=== PATIENT | male | born 1990 | race Two or more races ===

== ENCOUNTER 2025-01-12 21:44 | Inpatient (IN) | payer MEDICAID, OTHER ==
[~2025-01-12] VITALS: Ht 175.3 cm; Wt 73.6 kg
[2025-01-12 21:45] VITALS: PULSE 88; RESP 16; O2SAT 99
[2025-01-12] MEDS: NALOXONE HCL 1MG/ML 2ML SYRINGE IV ONE (21:46)
[2025-01-12] MEDS: ETOMIDATE (2MG/ML) 20ML VIAL IV ONE (21:49)
[2025-01-12] MEDS: ROCURONIUM 10MG/ML 10ML VIAL IV ONE (21:49)
--- NOTE | 2025-01-12 21:51 | ED.PDOC ---
History of Present Illness HPI Comments 35 y/o M, with limited known history of depression, is BIBA for c/o ALOC s/p possible overdose. Per EMS report, family called after finding patient in altered stated at home. He is stated to have taken an unknown amount of his prescription Trazodone, earlier, in an attempt to end his life. Last well known time of 1 hour ago prior to arrival. Patient was noted to have had pinpoint pupils and respiratory depression. He was given a total of 4mg of Narcan (2mg via IM and 2mg via IV), with patient vomiting multiple times and becoming responsive, temporarily, prior to undergoing respiratory depression, again. No reported further associated symptoms reported. Further history is limited, due to patient's current condition and absence of family/an/ssn 2 4 operator historians at this time of initial encounter. 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, Other (Narcan; nonrebreather ) Past Medical History PAST MEDICAL HISTORY: Depression Surgical History: Unknown, Unobtainable Family History Family History: Unknown, Unobtainable Social History Smoker: Unknown, Unobtainable Alcohol: Unknown, Unobtainable Drugs: Unknown, Unobtainable Lives In: Home All Other Systems: Reviewed and Negative (Comprehensive systems review obtained and negative except for what is stated in the HPI.) Physical Exam General Appearance: Other (Patient unresponsive, EMS his bagging the patient.) HEENT: Pharynx Normal Neck: Normal Inspection Respiratory: Other (Patient is being bagged) Cardiovascular: Tachycardia Breast Exam: Deferred Gastrointestinal: Non Tender Genitalia: Other (Erect penis) Pelvic: Deferred Rectal: Deferred Extremities: Normal inspection Neurologic: Other (Patient unresponsive, does not react to pain) Cerebellar Function: Unable to Test Reflexes: NOT DONE Skin: Pallor Lymphatic: NOT DONE Was a procedure done? Was a procedure done?: Yes Sedation Sedation?: Yes Informed consent obtained: Yes Sedation start time: 21:45 Sedation end time: 22:02 Sedation total time: 17 minutes Central Line Recorder of insertion practice: Detective Occupation of care management specialist: Attending Physician Indication: Volume resuscitation Room prepared for procedure: Yes Detective performed hand hygien: Yes Maximal sterile barrier precau: Mask/Eye shield, Sterile gown, Cap, Sterlie gloves, Large sterlie drape Skin Preparation: Chlorhexidine gluconate Skin preparation completely dr: Yes Insertion site: Right, Femoral Central line catheter type: Tqi-[id number]-ois dialysis Number of lumens: 3 Central line exchanged over a: No Antiseptic ointment applied to: No Post Assessment: Chest X-Ray, Proper placement Informed consent obtained: No Risks/benefits/alt described: No Intubation Indication: Respiratory Insufficiency (hypoxia ), Altered Mental Status Prep: Preoxygenation Pretreated with: Nothing Medicated with: Other (20mg etomidate, 100mg rocuronium) Intubation Approach: Orotracheal (8.0) Intubation size: cm (23 at the teeth ) Informed consent obtained: No Risks/benefits/alt described: No EKG EKG : Pulse Rate (adult): [address] [place]: Normal Cardiac Rhythm: ST Block: None Hypertrophy: LVH ST: Normal Differential Dx Considerations may include: substance overdose, substance dependency, encephalopathy, dehydration, electrolyte imbalance, suicidal, among others X-Ray, Labs, Meds, VS Vital Signs Date Time Temp Pulse Resp B/P (MAP) Pulse Ox O2 Delivery O2 Flow Rate FiO2 01/13/25 01:05 95/51 01/13/25 00:39 83 24 89/33 (51) 99 60 01/13/25 00:00 62 01/12/25 23:39 64 18 105/62 (76) 97 60 01/12/25 22:50 116/75 01/12/25 22:09 83 18 97 Mechanical Ventilator+ 100 100 01/12/25 22:09 97.6 83 18 123/85 (98) 97 97.6 01/12/25 22:04 112 01/12/25 22:03 156/105 01/12/25 22:01 97.4 78 6 126/86 (99) 76 97.4 01/12/25 21:56 105 18 156/105 (122) 95 60 01/12/25 21:55 112 01/12/25 21:49 156/105 Lab Test 01/13/25 01:18 01/13/25 00:26 01/12/25 23:30 01/12/25 22:53 Range/Units Troponin I High Sensitivity Pending < 3 L </=54 ng/L Lactic Acid Level 4.2 *H 0.4-2.0 mmol/L Blood Gas Specimen Type Arterial Blood Gas Sample Site Left radial Blood Gas Patient Temperature 37.0 Arterial Blood Date Drawn [id number] Arterial Blood pH 7.301 L 7.350-7.450 Arterial Blood Partial Pressure CO2 37.6 35.0-48.0 mmHg Arterial Blood Partial Pressure O2 247.6 H 83.0-108.0 mmHg Arterial Blood HCO3 18.1 L 21.0-28.0 mmol/L Arterial Blood Oxygen Saturation 99.7 H 94.0-98.0 % Arterial Blood Base Excess -7.5 L -2.0-3.0 mmol/L Arterial Blood Oxyhemoglobin 98.6 H 94.0-98.0 % Arterial Blood Carboxyhemoglobin 0.4 L 0.5-1.5 % Arterial Blood Methemoglobin 0.7 0.0-1.5 % Westley Test Modified Blood Gas Total Hemoglobin 15.50 13.5-17.5 g/dL Blood Gas Set Respiration Rate 18.0 Blood Gas Modality Vent - ac Blood Gas Spontaneous Rate 18 FiO2 % 60.0 Blood Gas Tidal Volume 500.0 Blood Gas Spontaneous Tidal Volume 505 Blood Gas PEEP or CPAP 5.0 Specimen Drawn By Johana mccoy rt Test 01/12/25 22:36 01/12/25 22:30 Range/Units White Blood Count 8.1 4.4-10.8 10^3/uL Red Blood Count 5.09 4.5-5.90 10^6/uL Hemoglobin 15.1 13.5-17.5 g/dL Hematocrit 45.4 41.0-53.0 % Mean Corpuscular Volume 89.3 80.0-100.0 fL Mean Corpuscular Hemoglobin 29.7 28.0-32.0 pg Mean Corpuscular Hemoglobin Concent 33.2 32.0-36.0 g/dL Red Cell Distribution Width 14.3 11.8-14.3 % Platelet Count 266 140-450 10^3/uL Mean Platelet Volume 7.1 6.9-10.8 fL Neutrophils (%) (Auto) 78.3 37.0-80.0 % Lymphocytes (%) (Auto) 15.6 10.0-50.0 % Monocytes (%) (Auto) 3.9 0.0-12.0 % Eosinophils (%) (Auto) 1.6 0.0-7.0 % Basophils (%) (Auto) 0.6 0.0-2.0 % Neutrophils # (Auto) 6.3 1.6-8.6 10 ^3/uL Lymphocytes # (Auto) 1.3 0.4-5.4 10 ^3/uL Monocytes # (Auto) 0.3 0-1.3 10 ^3/uL Eosinophils # (Auto) 0.1 0-0.8 10 ^3/uL Basophils # (Auto) 0.1 0-0.2 10 ^3/uL Nucleated Red Blood Cells 0.1 % Sodium Level 141 136-145 mmol/L Potassium Level 3.6 3.5-5.1 mmol/L Chloride Level 106 98-107 mmol/L Carbon Dioxide Level 20 20-31 mmol/L Anion Gap 15 5-15 Blood Urea Nitrogen 8 L 9-23 mg/dL Creatinine 0.96 0.700-1.30 mg/dL Glomerular Filtration Rate Calc 105 >90 mL/min BUN/Creatinine Ratio 8.3 L 10.0-20.0 Serum Glucose 122 H 74-106 mg/dL Lactic Acid Level 4.2 *H 0.4-2.0 mmol/L Calcium Level 9.4 8.7-10.4 mg/dL Total Bilirubin 0.5 0.2-1.0 mg/dL Aspartate Amino Transferase (AST) 35 13-40 U/L Alanine Aminotransferase (ALT) 30 7-40 U/L Alkaline Phosphatase 88 46-116 U/L Troponin I High Sensitivity < 3 L </=54 ng/L B-Type Natriuretic Peptide 9.14 0-100 pg/mL Total Protein 7.3 5.7-8.2 g/dL Albumin 4.7 3.2-4.8 g/dL Lipase 36 12-53 U/L Beta-Hydroxybutyric Acid 0.147 < 0.4 mmol/L Salicylates Level < 3.0 -30 mg/dL Acetaminophen Level < 2.0 L 10.0-20.0 UG/ML Plasma/Serum Blood Alcohol 356.3 H <10 mg/dL Urine Color Light-yellow Yellow Urine Clarity Clear Clear Urine pH 5.5 5.0-9.0 Urine Specific Kevin 1.014 1.001-1.035 Urine Protein 1+ H Negative Urine Ketones Negative Negative Urine Blood 1+ H Negative /uL Urine Nitrite Negative Negative Urine Bilirubin Negative Negative Urine Urobilinogen Normal Negative mg/dL Urine Leukocyte Esterase Negative Negative /uL Urine RBC 29 0 - 3 /hpf Urine Microscopic WBC 4 H 0-3 /HPF Urine Squamous Epithelial Cells None seen <5 /hpf Urine Bacteria Few H None Seen /hpf Urine Granular Casts Mod 0 /lpf Urine Glucose Normal Normal mg/dL Urine Opiates Screen Neg NEGATIVE Urine Fentanyl Screen Neg NEGATIVE Urine Barbiturates Screen Neg NEGATIVE Urine Phencyclidine Screen Neg NEGATIVE Urine Amphetamines Screen Neg NEGATIVE Urine Benzodiazepines Screen Neg NEGATIVE Urine Cocaine Screen Neg NEGATIVE Urine Cannabinoids Screen Neg NEGATIVE Current Medications Medications (Trade) Dose Ordered Sig/Connor Route Start Time Stop Time Status Last Admin Etomidate 20 mg ONCE ONCE IV 01/12/25 22:00 01/12/25 22:01 DC 01/12/25 21:49 Rocuronium [place] 100 mg ONCE ONCE IV 01/12/25 22:00 01/12/25 22:01 DC 01/12/25 21:49 Midazolam HCl 50 ml @ 1 mls/hr Q24H IV 01/12/25 22:15 01/12/25 22:03 Fentanyl Citrate 250 ml @ 2.5 mls/hr Q24H IV 01/12/25 22:15 01/12/25 22:50 Naloxone HCl (Narcan) 2 mg ONCE ONCE IV 01/12/25 22:15 01/12/25 22:16 DC 01/12/25 21:46 Sodium Chloride 1,000 ml @ 1,000 mls/hr Q1H ONCE IV 01/12/25 23:45 01/13/25 00:44 DC 01/12/25 23:51 Magnesium Sulfate/ Dextrose 100 ml @ 100 mls/hr Q1H IV 01/13/25 00:30 01/13/25 02:29 01/13/25 00:55 Sodium Chloride 1,000 ml @ 1,000 mls/hr Q1H ONCE IV 01/13/25 01:00 01/13/25 01:59 01/13/25 01:00 Norepinephrine Bitartrate 250 ml @ 3.75 mls/hr Q24H IV 01/13/25 01:00 01/13/25 01:05 [facility] [id number] [facility] [address] Ph: [phone] DIAGNOSTIC IMAGING Diagnostic Imaging Report : [id number] Signed PATIENT: YOHAN DUNCAN ACCT: [id number] UNIT: [id number] : 06/29/1989 LOC: ER ROOM / BED: / AGE / SEX: 35 / M ADM STATUS: REG ER SERVICE 50 ORDERING PHYSICIAN: KEHINDE JACKSON MD PROCEDURE(s): CXR1 - CHEST XRAY 1 VIEW REASON: ET TUBE PLACEMENT ORDER NUMBER(s): [id number], ACCESSION NUMBER(s): [id number] CHEST RADIOGRAPH Indication: ET TUBE PLACEMENT Technique: Single frontal view of the chest was obtained COMPARISON: None FINDINGS / IMPRESSION: Lines and Tubes: ETT noted in satisfactory position with its tip approximately 3.6 cm above the sagrario. NG tube extends below the diaphragm with its tip at le ast in the distal gastric body. Lungs: Clear. Pleura: No effusion. No pneumothorax. Cardiomediastinal contours: Unremarkable ATED BY: HEATH BRITO MD DICTATED DATE/TIME: 01/12/252213 SIGNED BY: HEATH BRITO MD SIGNED DATE/TIME: 01/12/252213 CC: Time of 1ST Reevaluation: 22:15 Reevaluation 1ST: Unchanged Patient Education/Counseling: Other (patient altered and intubated ) Family Education/Counseling: No Family Present Additional Information Reviewed patient's previous visit(s): N/A The following tests were ordered, and results were reviewed by me: EKG, respirat ory cultures, CXR, CT head w/o contrast, troponin, UA, salicylate, lipase, lactic acid w/reflex, drug screen , CMP, CBC, blood alcohol, beta- hydroxybutyrate, BNP, acetaminophen, blood culture Additional information was gathered from interviewing the following independent historian: EMS I reviewed and agreed with the following test results read by other provider: CXR, CT head w/o contrast I discussed treatments and results with medical personnel Sepsis Sepsis Reasesment Focused Exam Orders: Laboratory Tests 01/12/25 22:36: Lactic Acid Level 4.2 01/13/25 00:26: Lactic Acid Level 4.2 Departure 1 Departure Time of Disposition: 01:23 ([place] Authorization to Admit to [facility] [id number] presented with altered mental status and unresponsive and not breathing on his own. EMS was bagging patient. Patient was emergently intubated central line placed consulted with poison control. We will admit patient for further workup and expert consultation) Impression: Primary Impression: Acute anoxic encephalopathy Additional Impressions: Alcohol intoxication Qualified Codes: F10.929 - Alcohol use, unspecified with intoxication, unspecified Overdose of trazodone Acute respiratory failure Qualified Codes: J96.01 - Acute respiratory failure with hypoxia Disposition: ADMITTED INPATIENT Admit to: ICU Condition: Critical Critical Care Note Critical Care Time?: Yes Critical care comment: Acute respiratory failure Authorized and Performed by: Kehinde Jackson MD Total critical care time: Approximately 144 minutes Due to a high probability of clinically significant, life threatening deterioration, the patient required my highest level of preparedness to intervene emergently and I personally spent this critical care time directly and personally managing the patient. This critical care time included obtaining a history; examining the patient; pulse oximetry; ordering and review of studies; arranging urgent treatment with development of a management plan; evaluation of patient's response to treatment; frequent reassessment; and, discussions with other providers. This critical care time was performed to assess and manage the high probability of imminent, life-threatening deterioration that could result in multi-organ failure. It was exclusive of separately billable procedures and treating other patients and teaching time. Please see my other sections and the rest of the note for further information on patient assessment and treatment. Stability Stability form required: No Heart Score Heart Score: Heart Score Response (Comments) Value History N/A 0 EKG N/A 0 Age N/A 0 Risk Factors N/A 0 Troponin N/A 0 Total 0 I personally scribed for KEHINDE JACKSON MD ([email or web address]) on 01/12/25 at 21:51. Electronically submitted by Johnny Silva ([email or web address]). I personally scribed for KEHINDE JACKSON MD ([email or web address]) on 01/12/25 at 22:04. Electronically submitted by Johnny Silva ([email or web address]). I personally scribed for KEHINDE JACKSON MD ([email or web address]) on 01/12/25 at 23:00. Electronically submitted by Johnny Silva ([email or web address]). KEHINDE JACKSON MD January 12, 2025 21:51
[2025-01-12] MEDS: fentaNYL Drip 2500mCg/250mlNS 250 ML IV ONE (21:56)
[2025-01-12] MEDS: MIDAZOLAM DRIP 50 mg/50mL 50 ML IV ONE (21:57)
[2025-01-12] MEDS: MIDAZOLAM DRIP 50 mg/50mL 50 ML IV SCH (22:03)
[2025-01-12 22:09] VITALS: PULSE 83; RESP 18; O2SAT 97
--- NOTE | 2025-01-12 22:16 | DVH ---
CHEST RADIOGRAPH Indication: ET TUBE PLACEMENT Technique: Single frontal view of the chest was obtained COMPARISON: None FINDINGS / IMPRESSION: Lines and Tubes: ETT noted in satisfactory position with its tip approximately 3.6 cm above the karlos a. NG tube extends below the diaphragm with its tip at least in the distal gastric body. Lungs: Clear. Pleura: No effusion. No pneumothorax. Cardiomediastinal contours: Unremarkable
[2025-01-12] MEDS: fentaNYL Drip 2500mCg/250mlNS 250 ML IV SCH (22:50)
[2025-01-12 22:55] LABS: Phencyclidine Screen, Urine Neg (NEGATIVE)
[2025-01-12 22:58] LABS: Amphetamine Screen, Urine Neg (NEGATIVE); Barbiturate Scree,Urine Neg (NEGATIVE); Benzodiazephine Screen, Urine Neg (NEGATIVE); Cannabinoid Screen, Urine Neg (NEGATIVE); Cocaine Screen, Urine Neg (NEGATIVE); Opiate Scree,Urine Neg (NEGATIVE)
[2025-01-12 23:02] LABS: Base Excess -7.5 mmol/L (-2.0-3.0)
[2025-01-12 23:02] LABS: Urine Bacteria FEW /hpf (None Seen); Urine Blood 1+ /uL (Negative); Urine Clarity Clear (Clear); Urine Color Light-Yellow (Yellow); Urine Protein, UAD 1+ (Negative); Urine Specific Gravity 1.014 (1.001-1.035); Urine Squamous Epithelial Cell None Seen /hpf (<5); Urine Urobilinogen Normal (Negative); Urine WBC 4 /HPF (0-3); Urine pH 5.5 (5.0-9.0)
[2025-01-12 23:03] LABS: Basophils # (auto) 0.1 10 ^3/uL (0-0.2); Basophils % (auto) 0.6 % (0.0-2.0); Eosinophils # (auto) 0.1 10 ^3/uL (0-0.8); Eosinophils % (auto) 1.6 % (0.0-7.0); Hematocrit 45.4 % (41.0-53.0); Hemoglobin 15.1 g/dL (13.5-17.5); Lymphocytes # (auto) 1.3 10 ^3/uL (0.4-5.4); Lymphocytes % (auto) 15.6 % (10.0-50.0); Mean Corpuscular Hemoglobin 29.7 pg (28.0-32.0); Mean Corpuscular Hgb Conc. 33.2 g/dL (32.0-36.0); Mean Corpuscular Volume 89.3 fL (80.0-100.0); Monocytes # (auto) 0.3 10 ^3/uL (0-1.3); Monocytes % (auto) 3.9 % (0.0-12.0); Neutrophils # (auto) 6.3 10 ^3/uL (1.6-8.6); Neutrophils % (auto) 78.3 % (37.0-80.0); Nucleated Red Blood Cells % 0.1 %; Platelet Count (auto) 266 10^3/uL (140-450); Red Blood Cells 5.09 10^6/uL (4.5-5.90); Red Cell Distribution Width 14.3 % (11.8-14.3); White Blood Cell 8.1 10^3/uL (4.4-10.8)
[2025-01-12 23:22] LABS: Alanine Aminotransferase 30 U/L (7-40); Albumin 4.7 g/dL (3.2-4.8); Alkaline Phosphatase 88 U/L (46-116); Anion Gap 15 (5-15); Aspartate Aminotransferase 35 U/L (13-40); BUN/Creatinine Ratio 8.3 (10.0-20.0); Calcium 9.4 mg/dL (8.7-10.4); Chloride 106 mmol/L (98-107); Potassium 3.6 mmol/L (3.5-5.1); Sodium 141 mmol/L (136-145); Total Protein 7.3 g/dL (5.7-8.2)
[2025-01-12 23:23] LABS: Acetaminophen < 2.0 UG/ML (10.0-20.0); Bilirubin, Total 0.5 mg/dL (0.2-1.0); Salicylate < 3.0 mg/dL (-30)
[2025-01-12 23:33] LABS: Lactic Acid w/Reflex 4.2 mmol/L (0.4-2.0)
[2025-01-12 23:35] LABS: Blood Alcohol 356.3 mg/dL (<10); Blood Urea Nitrogen 8 mg/dL (9-23); Carbon Dioxide 20 mmol/L (20-31); Glucose 122 mg/dL (74-106)
[2025-01-12] MEDS: SODIUM CHLORIDE 0.9% 1,000 ML IV ONE (23:51)
[2025-01-13] VITALS (44 sets, daily range): BP systolic 88–134; BP diastolic 41–89; PULSE 71–80; RESP 18–22; TEMP 97.6–100.4; O2SAT 97–100
[2025-01-13 00:17] LABS: Lipase 36 U/L (12-53)
[2025-01-13] MEDS: MAGNESIUM SULFATE 1GM/100ML 100 ML IV SCH (00:55)
[2025-01-13] MEDS: SODIUM CHLORIDE 0.9% 1,000 ML IV ONE ×2 (01:00→06:02)
[2025-01-13] MEDS: NOREPINEPHRINE 8 MG/250ML KIT 250 ML IV SCH (01:05)
--- NOTE | 2025-01-13 03:04 | DVH ---
Examination: HWOCT CLINICAL INDICATION: found down. COMPARISON: None. CONTRAST USED: None. TECHNIQUE: The examination was performed obtaining 5 mm slices without contrast. CT scan was done acc ording to ALARA (As Low as Reasonably Achievable). Multiplanar reconstructions were obtained. FINDINGS: SUPRATENTORIAL BRAIN: Cerebral Hemispheres: There is no midline shift or mass effect, intra or extra-axial fluid collection s or hemorrhage. Periventricular White Matter/Basal Ganglia: No abnormal areas of altered attenuation within the periv entricular white matter or basal ganglia. POSTERIOR FOSSA: The brainstem is normal and the visualized cerebellar hemispheres are unremarkable. VENTRICULAR SYSTEM: The ventricular system is normal in size. There is no evidence of hydrocephalus o r transependymal flow of cerebrospinal fluid. SKULL BASE AND PARASELLAR REGION: The skull base is normal with no parasellar masses or abnormalities identified. CALVARIUM AND SCALP REGION: No obvious skull vault fracture. Mild scalp hematoma over the left high p arietal region. PARANASAL SINUSES: No significant inflammatory changes are identified in the visualized paranasal sin uses. IMPRESSION: 1. No obvious intracranial injury or skull vault fracture. 2. Mild scalp hematoma over the left high parietal region. 3. Advised further evaluation with MRI brain without contrast if clinically indicated. Electronically Signed 01/13/2025 03:01 Santhosh Mazariegos
[2025-01-13] MEDS ORDERED: ONDANSETRON HCL 4 MG/2 ML VIAL IV PRN (04:45)
[2025-01-13] MEDS ORDERED: MORPHINE SULFATE INJ 2 MG/ml SYRG IV PRN (04:45)
[2025-01-13] MEDS ORDERED: NITROGLYCERIN 0.4 MG SL TAB SL PRN (04:45)
--- NOTE | 2025-01-13 04:56 | DVHHP2 ---
History of Present Illness Reason for Visit: Possible overdose History of Present Illness 35-year-old male presents for evaluation of possible overdose. Patient is currently sedated and intubated. Per ED records and personnel patient took an unknown amount of trazodone earlier in the attempt to end his life. Patient presented with agonal breathing and was emergently intubated in the emergency department for airway protection. No family at the bedside to provide further history. Past Medical History Depression Past Surgical History Unknown Family History Noncontributory Smoke: No ALCOHOL: none Drugs: None Lives: with Family Review of Systems Review of Systems Unable to complete review of systems patient is sedated and intubated. I. Allergies: Coded Allergies: NO KNOWN ALLERGIES (Unverified , 01/12/25) Medications Current Medications Medications Dose Ordered Sig/Connor Route Start Time Stop Time Status Last Admin Dose Admin Midazolam HCl 50 ml @ 1 mls/hr Q24H IV 01/12/25 22:15 01/12/25 22:03 1 MLS/HR Fentanyl Citrate 250 ml @ 2.5 mls/hr Q24H IV 01/12/25 22:15 01/12/25 22:50 2.5 MLS/HR Norepinephrine Bitartrate 250 ml @ 3.75 mls/hr Q24H IV 01/13/25 01:00 01/13/25 01:05 3.75 MLS/HR Ceftriaxone Sodium 50 ml @ 100 mls/hr DAILY@09 IV 01/13/25 04:45 Ondansetron HCl 4 mg Q4HP PRN IV 01/13/25 04:45 Nitroglycerin 0.4 mg Q5MINP PRN SL 01/13/25 04:45 Morphine Sulfate 2 mg Q30M PRN IV 01/13/25 04:45 Pantoprazole Sodium 40 mg DAILY IV 01/13/25 10:00 Exam Vital Signs Vital Signs Date Time Temp Pulse Resp B/P (MAP) Pulse Ox O2 Delivery O2 Flow Rate FiO2 01/13/25 04:42 76 01/13/25 04:10 18 88/41 (57) 99 40 01/13/25 03:16 97.6 97.6 01/12/25 22:09 Mechanical Ventilator+ 01/12/25 21:45 25 Exam Gen: 34-year-old male intubated Skin: Warm, dry, normal color and texture, no rash. HEENT: Normocephalic atraumatic, mucous membranes moist and pink. Neck: Cervical and supraclavicular nodes normal without enlargement, trachea is midline, thyroid gland is normal without masses. Pulmonary: Intubated, diminished breath sounds bilaterally Cardiac: Regular rate and rhythm. No murmur Abdomen: Soft, nontender, nondistended, bowel sounds present all 4 quadrants, no guarding, no rigidity, no organomegaly. Extremities: No cyanosis, clubbing, no edema Neuro: Sedated Labs/Xrays ORDERING PHYSICIAN: KEHINDE JACKSON MD PROCEDURE(s): CXR1 - CHEST XRAY 1 VIEW REASON: ET TUBE PLACEMENT ORDER NUMBER(s): [id number], ACCESSION NUMBER(s): [id number] CHEST RADIOGRAPH Indication: ET TUBE PLACEMENT Technique: Single frontal view of the chest was obtained COMPARISON: None FINDINGS / IMPRESSION: Lines and Tubes: ETT noted in satisfactory position with its tip approximately 3.6 cm above the sagrario. NG tube extends below the diaphragm with its tip at least in the distal gastric body. Lungs: Clear. Pleura: No effusion. No pneumothorax. Cardiomediastinal contours: Unremarkable RING PHYSICIAN: KEHINDE JACKSON MD PROCEDURE(s): HWOCT - HEAD WITHOUT CONTRAST REASON: found down ORDER NUMBER(s): [id number], ACCESSION NUMBER(s): [id number] Examination: HWOCT CLINICAL INDICATION: found down. COMPARISON: None. CONTRAST USED: None. TECHNIQUE: The examination was performed obtaining 5 mm slices without contrast. CT scan was done according to ALARA (As Low as Reasonably Achievable). Multiplanar reconstructions were obtained. FINDINGS: SUPRATENTORIAL BRAIN: Cerebral Hemispheres: There is no midline shift or mass effect, intra or extra- axial fluid collections or hemorrhage. Periventricular White Matter/Basal Ganglia: No abnormal areas of altered attenuation within the periventricular white matter or basal ganglia. POSTERIOR FOSSA: The brainstem is normal and the visualized cerebellar hemispheres are unremarkable. VENTRICULAR SYSTEM: The ventricular system is normal in size. There is no evidence of hydrocephalus or transependymal flow of cerebrospinal fluid. SKULL BASE AND PARASELLAR REGION: The skull base is normal with no parasellar masses or abnormalities identified. CALVARIUM AND SCALP REGION: No obvious skull vault fracture. Mild scalp hematoma over the left high parietal region. PARANASAL SINUSES: No significant inflammatory changes are identified in the visualized paranasal sinuses. IMPRESSION: 1. No obvious intracranial injury or skull vault fracture. 2. Mild scalp hematoma over the left high parietal region. 3. Advised further evaluation with MRI brain without contrast if cli Labs Test 01/13/25 01:18 01/13/25 00:26 01/12/25 22:53 01/12/25 22:36 Range/Units Troponin I High Sensitivity < 3 L </=54 ng/L Lactic Acid Level 4.2 *H 0.4-2.0 mmol/L Blood Gas Specimen Type Arterial Blood Gas Sample Site Left radial Blood Gas Patient Temperature 37.0 Arterial Blood Date Drawn [id number] Arterial Blood pH 7.301 L 7.350-7.450 Arterial Blood Partial Pressure CO2 37.6 35.0-48.0 mmHg Arterial Blood Partial Pressure O2 247.6 H 83.0-108.0 mmHg Arterial Blood HCO3 18.1 L 21.0-28.0 mmol/L Arterial Blood Oxygen Saturation 99.7 H 94.0-98.0 % Arterial Blood Base Excess -7.5 L -2.0-3.0 mmol/L Arterial Blood Oxyhemoglobin 98.6 H 94.0-98.0 % Arterial Blood Carboxyhemoglobin 0.4 L 0.5-1.5 % Arterial Blood Methemoglobin 0.7 0.0-1.5 % Westley Test Modified Blood Gas Total Hemoglobin 15.50 13.5-17.5 g/dL Blood Gas Set Respiration Rate 18.0 Blood Gas Modality Vent - ac Blood Gas Spontaneous Rate 18 FiO2 % 60.0 Blood Gas Tidal Volume 500.0 Blood Gas Spontaneous Tidal Volume 505 Blood Gas PEEP or CPAP 5.0 Specimen Drawn By Johana mccoy rt White Blood Count 8.1 4.4-10.8 10^3/uL Red Blood Count 5.09 4.5-5.90 10^6/uL Hemoglobin 15.1 13.5-17.5 g/dL Hematocrit 45.4 41.0-53.0 % Mean Corpuscular Volume 89.3 80.0-100.0 fL Mean Corpuscular Hemoglobin 29.7 28.0-32.0 pg Mean Corpuscular Hemoglobin Concent 33.2 32.0-36.0 g/dL Red Cell Distribution Width 14.3 11.8-14.3 % Platelet Count 266 140-450 10^3/uL Mean Platelet Volume 7.1 6.9-10.8 fL Neutrophils (%) (Auto) 78.3 37.0-80.0 % Lymphocytes (%) (Auto) 15.6 10.0-50.0 % Monocytes (%) (Auto) 3.9 0.0-12.0 % Eosinophils (%) (Auto) 1.6 0.0-7.0 % Basophils (%) (Auto) 0.6 0.0-2.0 % Neutrophils # (Auto) 6.3 1.6-8.6 10 ^3/uL Lymphocytes # (Auto) 1.3 0.4-5.4 10 ^3/uL Monocytes # (Auto) 0.3 0-1.3 10 ^3/uL Eosinophils # (Auto) 0.1 0-0.8 10 ^3/uL Basophils # (Auto) 0.1 0-0.2 10 ^3/uL Nucleated Red Blood Cells 0.1 % Sodium Level 141 136-145 mmol/L Potassium Level 3.6 3.5-5.1 mmol/L Chloride Level 106 98-107 mmol/L Carbon Dioxide Level 20 20-31 mmol/L Anion Gap 15 5-15 Blood Urea Nitrogen 8 L 9-23 mg/dL Creatinine 0.96 0.700-1.30 mg/dL Glomerular Filtration Rate Calc 105 >90 mL/min BUN/Creatinine Ratio 8.3 L 10.0-20.0 Serum Glucose 122 H 74-106 mg/dL Calcium Level 9.4 8.7-10.4 mg/dL Total Bilirubin 0.5 0.2-1.0 mg/dL Aspartate Amino Transferase (AST) 35 13-40 U/L Alanine Aminotransferase (ALT) 30 7-40 U/L Alkaline Phosphatase 88 46-116 U/L B-Type Natriuretic Peptide 9.14 0-100 pg/mL Total Protein 7.3 5.7-8.2 g/dL Albumin 4.7 3.2-4.8 g/dL Lipase 36 12-53 U/L Beta-Hydroxybutyric Acid 0.147 < 0.4 mmol/L Salicylates Level < 3.0 -30 mg/dL Acetaminophen Level < 2.0 L 10.0-20.0 UG/ML Plasma/Serum Blood Alcohol 356.3 H <10 mg/dL Test 01/12/25 22:30 Range/Units Urine Color Light-yellow Yellow Urine Clarity Clear Clear Urine pH 5.5 5.0-9.0 Urine Specific [place] 1.014 1.001-1.035 Urine Protein 1+ H Negative Urine Ketones Negative Negative Urine Blood 1+ H Negative /uL Urine Nitrite Negative Negative Urine Bilirubin Negative Negative Urine Urobilinogen Normal Negative mg/dL Urine Leukocyte Esterase Negative Negative /uL Urine RBC 29 0 - 3 /hpf Urine Microscopic WBC 4 H 0-3 /HPF Urine Squamous Epithelial Cells None seen <5 /hpf Urine Bacteria Few H None Seen /hpf Urine Granular Casts Mod 0 /lpf Urine Glucose Normal Normal mg/dL Urine Opiates Screen Neg NEGATIVE Urine Fentanyl Screen Neg NEGATIVE Urine Barbiturates Screen Neg NEGATIVE Urine Phencyclidine Screen Neg NEGATIVE Urine Amphetamines Screen Neg NEGATIVE Urine Benzodiazepines Screen Neg NEGATIVE Urine Cocaine Screen Neg NEGATIVE Urine Cannabinoids Screen Neg NEGATIVE Assessment/Plan Assessment/Plan Assessment Acute respiratory failure, intubated Toxic encephalopathy Trazodone overdose Suicide attempt Plan Admit the patient to ICU to the hospitalist Pulmonary consult Rocephin Maintenance IV fluids Continue treatment per orders Total critical care time excluding procedures performed is 55 minutes. Plan discussed with: Other My Orders Orders - JAD ROSA Procedure Category Date Status Time Sodium Chloride 0.9% PHA 01/13/25 In Process 04:45 Ceftriaxone 1gm/50ml PHA 01/13/25 In Process D5w (Rocephin) 04:45 *Consult CONS 01/13/25 Transmitted / 04:33 Admit ADMIT 01/13/25 Transmitted 04:33 Ondansetron Hcl PHA 01/13/25 In Process (Zofran) 04:45 Complete Blood Count LAB 01/14/25 Verified 04:00 Comprehensive LAB 01/14/25 Verified Metabolic Panel 04:00 Condition: Unstable MARI 01/13/25 In Process 04:33 Bedrest With Bathroom MARI 01/13/25 In Process Privileg 04:33 Nitroglycerin PHA 01/13/25 In Process Sublingual (Ntrostat 04:45 Morphine Sulfate PHA 01/13/25 In Process Injection 04:45 Stat Ekg For Chest MARI 01/13/25 In Process Pain 04:33 Notify Md Of Changes [facility] 01/13/25 In Process From Base 04:33 Elementary Education Tutor For [facility] 01/13/25 In Process 24 Hours 04:33 Emergency Dysrhythmia [facility] 01/13/25 In Process Protocol 04:33 Rhythm Strips Once [facility] 01/13/25 In Process Every Shift 04:33 Oxygen By Nasal RT 01/13/25 Transmitted Cannula 04:33 Pantoprazole PHA 01/13/25 In Process (Protonix) 10:00 Date of Service: January 13, 2025 Billing Provider: JAD ROSA Common Visit Codes: [id number] CARE 30-74 MIN JAD ROSA January 13, 2025 04:56
--- NOTE | 2025-01-13 04:59 | ECG ---
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
[2025-01-13] MEDS: cefTRIAXone 1GM/50ML D5W 50 ML IV SCH (06:02)
[2025-01-13 06:08] LABS: Base Excess -8.1 mmol/L (-2.0-3.0)
[2025-01-13 09:29] LABS: Basophils # (auto) 0.1 10 ^3/uL (0-0.2); Basophils % (auto) 0.9 % (0.0-2.0); Eosinophils # (auto) 0 10 ^3/uL (0-0.8); Eosinophils % (auto) 0.1 % (0.0-7.0); Hematocrit 42.8 % (41.0-53.0); Hemoglobin 14.4 g/dL (13.5-17.5); Lymphocytes # (auto) 1.3 10 ^3/uL (0.4-5.4); Mean Corpuscular Hemoglobin 29.7 pg (28.0-32.0); Mean Corpuscular Hgb Conc. 33.6 g/dL (32.0-36.0); Mean Corpuscular Volume 88.2 fL (80.0-100.0); Monocytes % (auto) 7.4 % (0.0-12.0); Neutrophils # (auto) 10.6 10 ^3/uL (1.6-8.6); Neutrophils % (auto) 81.6 % (37.0-80.0); Platelet Count (auto) 267 10^3/uL (140-450); Red Blood Cells 4.85 10^6/uL (4.5-5.90); Red Cell Distribution Width 13.7 % (11.8-14.3)
[2025-01-13 09:38] LABS: Alanine Aminotransferase 26 U/L (7-40); Alkaline Phosphatase 75 U/L (46-116); Anion Gap 16 (5-15); Aspartate Aminotransferase 32 U/L (13-40); BUN/Creatinine Ratio 7.9 (10.0-20.0); Potassium 4.1 mmol/L (3.5-5.1); Sodium 141 mmol/L (136-145); Total Protein 6.2 g/dL (5.7-8.2)
[2025-01-13 09:39] LABS: Bilirubin, Total 0.4 mg/dL (0.2-1.0); Blood Urea Nitrogen 7 mg/dL (9-23); Calcium 8.1 mg/dL (8.7-10.4); Carbon Dioxide 15 mmol/L (20-31); Chloride 110 mmol/L (98-107); Glucose 122 mg/dL (74-106)
[2025-01-13] MEDS: PANTOPRAZOLE 40 MG/10 ML VIAL INJ IV SCH (10:00)
--- NOTE | 2025-01-13 13:36 | ECG ---
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
--- NOTE | 2025-01-13 15:59 | DVHPN2 ---
Subjective Patient intubated and sedated Reviewed: Care Plan, H&P, Labs, Medications Changes from previous H/P or p: No Changes General: Per HPI Objective Vitals Vital Signs Date Time Temp Pulse Resp B/P (MAP) Pulse Ox O2 Delivery O2 Flow Rate FiO2 01/13/25 14:00 94/52 01/13/25 14:00 99.9 76 18 96 99.9 01/13/25 12:02 40 01/13/25 08:09 Mechanical Ventilator+ 01/12/25 21:45 25 Intake/Output Intake and Output 01/13/25 07:00 Intake Total 2290.25 ml Output Total 1400 ml Balance 890.25 ml Intake IV Total 2290.25 ml Output Urine Total 1400 ml General Appearance: moderate distress, Other (Chemically sedated) HEENT: Atraumatic, PERRLA Lungs: Clear to auscultation, Normal air movement, Other (Mechanical ventilation) Cardiovascular: Normal S1, Normal S2, Other (Sinus rhythm with prolonged QTC greater than 500) Abdomen: Other (Unable to assess) Skin: Other (Unable to assess) Psych/Mental Status: Other (Unable to assess) Medications Current Medications Medications Dose Ordered Sig/Connor Route Start Time Stop Time Status Last Admin Dose Admin Midazolam HCl 50 ml @ 1 mls/hr Q24H IV 01/12/25 22:15 01/13/25 07:03 6 MLS/HR Fentanyl Citrate 250 ml @ 2.5 mls/hr Q24H IV 01/12/25 22:15 01/12/25 22:50 2.5 MLS/HR Norepinephrine Bitartrate 250 ml @ 3.75 mls/hr Q24H IV 01/13/25 01:00 01/13/25 01:05 3.75 MLS/HR Ceftriaxone Sodium 50 ml @ 100 mls/hr DAILY@09 IV 01/13/25 04:45 01/13/25 09:00 100 MLS/HR Ondansetron HCl 4 mg Q4HP PRN IV 01/13/25 04:45 Nitroglycerin 0.4 mg Q5MINP PRN SL 01/13/25 04:45 Morphine Sulfate 2 mg Q30M PRN IV 01/13/25 04:45 Pantoprazole Sodium 40 mg DAILY IV 01/13/25 10:00 01/13/25 10:00 40 MG Laboratory Results Laboratory Tests 01/13/25 09:04 01/13/25 09:15 Chemistry Test 01/12/25 22:36 01/13/25 09:04 Albumin 4.7 g/dL (3.2-4.8) 4.0 g/dL (3.2-4.8) Calcium Level 9.4 mg/dL (8.7-10.4) 8.1 mg/dL (8.7-10.4) L Total Protein 7.3 g/dL (5.7-8.2) 6.2 g/dL (5.7-8.2) Lipid panel Test 01/12/25 22:36 Lipase 36 U/L (12-53) Cardiac Markers Test 01/12/25 22:36 B-Type Natriuretic Peptide 9.14 pg/mL (0-100) LFT Test 01/12/25 22:36 01/13/25 09:04 Alanine Aminotransferase (ALT) 30 U/L (7-40) 26 U/L (7-40) Alkaline Phosphatase 88 U/L (46-116) 75 U/L (46-116) Aspartate Amino Transferase (AST) 35 U/L (13-40) 32 U/L (13-40) Total Bilirubin 0.5 mg/dL (0.2-1.0) 0.4 mg/dL (0.2-1.0) Urinalysis Test 01/12/25 22:30 Urine Color Light-yellow (Yellow) Urine Clarity Clear (Clear) Urine pH 5.5 (5.0-9.0) Urine Specific [place] 1.014 (1.001-1.035) Urine Protein 1+ (Negative) H Urine Ketones Negative (Negative) Urine Blood 1+ /uL (Negative) H Urine Nitrite Negative (Negative) Urine Bilirubin Negative (Negative) Urine Urobilinogen Normal mg/dL (Negative) Urine Leukocyte Esterase Negative /uL (Negative) Urine RBC 29 /hpf (0 - 3) Urine Microscopic WBC 4 /HPF (0-3) H Urine Squamous Epithelial Cells None seen /hpf (<5) Urine Bacteria Few /hpf (None Seen) H Urine Granular Casts Mod /lpf (0) Urine Glucose Normal mg/dL (Normal) Blood Gas Results Test 01/12/25 22:53 01/13/25 05:55 Arterial Blood pH 7.301 (7.350-7.450) 7.284 (7.350-7.450) FiO2 % 60.0 40.0 Labs and/or images reviewed: Labs reviewed by me, Image(s) reviewed by me Assessment/Plan Assessment/Plan Impression: -toxic metabolic encephalopathy -alcoholism -intentional overdose with probable suicidal ideation with trazodone -sirs -acute hypoxic respiratory failure with mechanical ventilation -hypotension secondary to sedation Plan: -patient unstable to transfer to [facility] given shock, prolonged QTC, persistent metabolic acidosis -sodium bicarbonate drip -start MVI, thiamine -continue current sedation -calcium supplementation -repeat labs this evening, with K and Mag replete -repeat labs, chest x-ray, ABG in a.m. -PUD, DVT prophylaxis Critical care time spent with patient discussing and formulating plan of care: 40 minutes. This does not include time spent performing procedures. This medical document was created using an electronic medical record system with [employer] dictation system. Although this document has been carefully reviewed, there may still be some phonetic and typographical errors. These areas are purely typographical due to imperfections of the software programs, and do not reflect any compromise in the patient's medical care. Plan discussed with: Patient, Other (RN) My Orders Orders - FARHAN MEDEIROS NP Procedure Category Date Status Time Sodium Bicarb PHA 01/13/25 Logged 50meq/50ml Vial 14:45 Date of Service: January 13, 2025 Billing Provider: FARHAN MEDEIROS NP Common Visit Codes: [id number] CARE 30-74 MIN FARHAN MEDEIROS NP January 13, 2025 15:59
[2025-01-13] MEDS: CALCIUM GLUC 1,000mg/50ml-NS 50 ML IV ONE (17:47)
[2025-01-13] MEDS: THIAMINE 100mg/ml INJ (200mg/2ml VIAL) IV ONE (17:47)
[2025-01-13] MEDS: SODIUM BICARB 50mEq/50ml Vial 50 ML in SOD CHL 0.45% 1,000 ML IV ONE (17:49)
[2025-01-13 18:55] LABS: Potassium 4.3 mmol/L (3.5-5.1); Sodium 145 mmol/L (136-145)
[2025-01-13 18:56] LABS: Anion Gap 9 (5-15); Calcium 8.9 mg/dL (8.7-10.4); Carbon Dioxide 26 mmol/L (20-31)
[2025-01-13 19:01] LABS: BUN/Creatinine Ratio 6.1 (10.0-20.0)
[2025-01-13 19:02] LABS: Blood Urea Nitrogen 7 mg/dL (9-23); Chloride 110 mmol/L (98-107); Glucose 116 mg/dL (74-106); Magnesium 1.8 mg/dL (1.6-2.6)
[2025-01-13] MEDS: ACETAMINOPHEN 325 MG TAB PO PRN (23:57)
[2025-01-14] VITALS (108 sets, daily range): BP systolic 94–123; BP diastolic 65–89; PULSE 61–102; RESP 18–23; TEMP 99.3–101.8; O2SAT 94–100
[2025-01-14 04:07] LABS: Basophils # (auto) 0.1 10 ^3/uL (0-0.2); Eosinophils # (auto) 0.4 10 ^3/uL (0-0.8); Eosinophils % (auto) 3.1 % (0.0-7.0); Hematocrit 39.1 % (41.0-53.0); Lymphocytes # (auto) 1.7 10 ^3/uL (0.4-5.4); Lymphocytes % (auto) 13.4 % (10.0-50.0); Mean Corpuscular Hemoglobin 29.6 pg (28.0-32.0); Mean Corpuscular Hgb Conc. 33.3 g/dL (32.0-36.0); Mean Corpuscular Volume 88.9 fL (80.0-100.0); Monocytes % (auto) 8.3 % (0.0-12.0); Neutrophils # (auto) 9.2 10 ^3/uL (1.6-8.6); Neutrophils % (auto) 74.2 % (37.0-80.0); Platelet Count (auto) 199 10^3/uL (140-450); Red Cell Distribution Width 13.8 % (11.8-14.3); White Blood Cell 12.4 10^3/uL (4.4-10.8)
[2025-01-14 04:23] LABS: Alanine Aminotransferase 19 U/L (7-40); Alkaline Phosphatase 74 U/L (46-116); Anion Gap 9 (5-15); Aspartate Aminotransferase 20 U/L (13-40); BUN/Creatinine Ratio 4.8 (10.0-20.0); Carbon Dioxide 27 mmol/L (20-31); Chloride 106 mmol/L (98-107); Magnesium 1.8 mg/dL (1.6-2.6); Potassium 3.9 mmol/L (3.5-5.1); Sodium 142 mmol/L (136-145)
[2025-01-14 04:24] LABS: Albumin 3.9 g/dL (3.2-4.8)
[2025-01-14 04:30] LABS: Blood Urea Nitrogen 6 mg/dL (9-23); Calcium 8.6 mg/dL (8.7-10.4)
[2025-01-14 04:53] LABS: Glucose 107 mg/dL (74-106)
--- NOTE | 2025-01-14 05:03 | DVH ---
CHEST RADIOGRAPH Indication: verify et tube placement/ ogt placement Technique: Single frontal view of the chest was obtained Comparison: XY CHEST XRAY 1 VIEW on DOS: 01/12/25 FINDINGS: Lines and Tubes: The endotracheal tube terminates 5.1 cm above the sagrario. The enteric tube courses b elow the left hemidiaphragm and outside the field of view. Lungs: The chest is obscured by overlying artifact, which limits evaluation. No focal consolidation. Pleura: No effusion. No pneumothorax. Cardiomediastinal contours: Unremarkable Bones: No acute osseous abnormality. IMPRESSION: 1. Endotracheal tube terminates 5.1 cm above the sagrario. 2. Limited study due to overlying artifact. No acute disease.
[2025-01-14] MEDS: MAGNESIUM SULFATE 1GM/100ML 100 ML IV ONE (05:41)
[2025-01-14] MEDS: POTASSIUM EFFERVESENT TAB 25 MEQ GT ONE (05:42)
[2025-01-14 06:18] LABS: Base Excess 2.6 mmol/L (-2.0-3.0)
[2025-01-14] MEDS: SODIUM CHLORIDE 0.9% 1,000 ML IV SCH (07:56)
[2025-01-14] MEDS: THIAMINE 100mg/ml INJ (200mg/2ml VIAL) IV SCH (09:18)
[2025-01-14] MEDS: MULTIPLE VITAMIN TAB PO SCH (09:18)
--- NOTE | 2025-01-14 09:50 | DVHPN2 ---
Subjective Patient intubated and sedated Reviewed: Care Plan, H&P, Labs, Medications Changes from previous H/P or p: No Changes General: Per HPI Objective Vitals Vital Signs Date Time Temp Pulse Resp B/P (MAP) Pulse Ox O2 Delivery O2 Flow Rate FiO2 01/14/25 09:04 76 19 110/77 (88) 98 30 01/14/25 08:00 99.9 99.9 01/14/25 08:00 Mechanical Ventilator+ 01/12/25 21:45 25 Intake/Output Intake and Output 01/14/25 07:00 Intake Total 1784.75 ml Output Total 1100 ml Balance 684.75 ml Intake Oral 50 ml IV Total 1734.75 ml Output Urine Total 1100 ml Stool Total 0 ml General Appearance: moderate distress, Other (Chemically sedated) HEENT: Atraumatic, PERRLA Lungs: Clear to auscultation, Normal air movement, Other (Mechanical ventilation) Cardiovascular: Normal S1, Normal S2, Other (Sinus rhythm with prolonged QTC greater than 500) Abdomen: Other (Unable to assess) Skin: Dry, Intact, Other (Unable to assess) Psych/Mental Status: Other (Unable to assess) Medications Current Medications Medications Dose Ordered Sig/Connor Route Start Time Stop Time Status Last Admin Dose Admin Midazolam HCl 50 ml @ 1 mls/hr Q24H IV 01/12/25 22:15 01/14/25 07:19 9 MLS/HR Fentanyl Citrate 250 ml @ 2.5 mls/hr Q24H IV 01/12/25 22:15 01/14/25 01:22 20 MLS/HR Norepinephrine Bitartrate 250 ml @ 3.75 mls/hr Q24H IV 01/13/25 01:00 01/13/25 22:22 26.25 MLS/HR Ceftriaxone Sodium 50 ml @ 100 mls/hr DAILY@09 IV 01/13/25 04:45 01/14/25 09:18 100 MLS/HR Ondansetron HCl 4 mg Q4HP PRN IV 01/13/25 04:45 Nitroglycerin 0.4 mg Q5MINP PRN SL 01/13/25 04:45 Morphine Sulfate 2 mg Q30M PRN IV 01/13/25 04:45 Pantoprazole Sodium 40 mg DAILY IV 01/13/25 10:00 01/14/25 09:18 40 MG Thiamine HCl 100 mg DAILY IV 01/14/25 10:00 01/14/25 09:18 100 MG Multivitamins 1 tab DAILY PO 01/14/25 10:00 Sodium Chloride 1,000 ml @ 75 mls/hr [id number] IV 01/14/25 07:45 01/14/25 07:56 75 MLS/HR Acetaminophen 650 mg Q6HP PRN GT 01/14/25 07:45 Enteral Nutritional Formula 1,000 ml 30ML/HR GT 01/14/25 09:45 UNV Laboratory Results Laboratory Tests 01/14/25 03:45 Chemistry Test 01/13/25 18:09 01/14/25 03:45 Calcium Level 8.9 mg/dL (8.7-10.4) 8.6 mg/dL (8.7-10.4) L Magnesium Level 1.8 mg/dL (1.6-2.6) 1.8 mg/dL (1.6-2.6) Albumin 3.9 g/dL (3.2-4.8) Total Protein 6.0 g/dL (5.7-8.2) LFT Test 01/14/25 03:45 Alanine Aminotransferase (ALT) 19 U/L (7-40) Alkaline Phosphatase 74 U/L (46-116) Aspartate Amino Transferase (AST) 20 U/L (13-40) Total Bilirubin 1.0 mg/dL (0.2-1.0) Urinalysis Test 01/12/25 22:30 Urine Color Light-yellow (Yellow) Urine Clarity Clear (Clear) Urine pH 5.5 (5.0-9.0) Urine Specific [place] 1.014 (1.001-1.035) Urine Protein 1+ (Negative) H Urine Ketones Negative (Negative) Urine Blood 1+ /uL (Negative) H Urine Nitrite Negative (Negative) Urine Bilirubin Negative (Negative) Urine Urobilinogen Normal mg/dL (Negative) Urine Leukocyte Esterase Negative /uL (Negative) Urine RBC 29 /hpf (0 - 3) Urine Microscopic WBC 4 /HPF (0-3) H Urine Squamous Epithelial Cells None seen /hpf (<5) Urine Bacteria Few /hpf (None Seen) H Urine Granular Casts Mod /lpf (0) Urine Glucose Normal mg/dL (Normal) Blood Gas Results Test 01/14/25 06:12 Arterial Blood pH 7.450 (7.350-7.450) FiO2 % 40.0 Microbiology Microbiology Date/Time Source Procedure Growth Status 01/12/25 22:36 Blood Blood Culture - Preliminary NO GROWTH AFTER 24 HOURS OF INCUBATION. Resulted Labs and/or images reviewed: Labs reviewed by me, Image(s) reviewed by me Assessment/Plan Assessment/Plan Impression: -toxic metabolic encephalopathy -alcoholism -intentional overdose with probable suicidal ideation with trazodone -sirs -acute hypoxic respiratory failure with mechanical ventilation -hypotension secondary to sedation Plan: Events: Patient having low-grade fevers overnight. Continues to be on vasopressor therapy. Patient unstable to transfer to [facility]. -continue normal saline -norepinephrine drip to keep map greater than 65 mmHg -antipyretics -QTC within normal range. Continue electrolyte replete -bronchodilators p.r.n. -continue thiamine, MVI. Add Jevity tube feeding -repeat labs, chest x-ray, ABG in a.m. -PUD, DVT prophylaxis -reassess for spontaneous breathing trial in a.m. Critical care time spent with patient discussing and formulating plan of care: 40 minutes. This does not include time spent performing procedures. This medical document was created using an electronic medical record system with [employer] dictation system. Although this document has been carefully reviewed, there may still be some phonetic and typographical errors. These areas are purely typographical due to imperfections of the software programs, and do not reflect any compromise in the patient's medical care. Plan discussed with: Patient, Other (RN) My Orders Orders - FARHAN MEDEIROS ANALYSIS MANAGER Procedure Category Date Status Time Thiamine Inj PHA 01/14/25 In Process 10:00 Multiple Vitamin PHA 01/14/25 In Process Tablet (Mvi Tab) 10:00 Mrsa Screen YANCY 01/13/25 In Process 22:00 Abg W/ Co-Ox RT 01/14/25 Logged 05:24 Sodium Chloride 0.9% PHA 01/14/25 In Process 07:45 Acetaminophen PHA 01/14/25 In Process Solution Oral 07:45 * Snowmaker CONS 01/14/25 Transmitted Consult Nutritional PHA 01/14/25 Logged Supplements (Jevity 09:45 Complete Blood Count LAB 01/15/25 Verified 04:00 Date of Service: January 14, 2025 Billing Provider: FARHAN MEDEIROS NP Common Visit Codes: [id number] CARE 30-74 MIN FARHAN MEDEIROS NP January 14, 2025 09:50
[2025-01-14] MEDS: ACETAMINOPHEN 650 mg PER 20.3 mL UD GT PRN (10:00)
[2025-01-14] MEDS: chlordiazePOXIDE HCL 25 MG CAP NG ONE (13:27)
[2025-01-14] MEDS: Jevity 1.2 Cal/Fiber 1 Liter GT SCH (13:31)
--- NOTE | 2025-01-14 14:00 | DVHINCON2 ---
Date of service: January 13, 2025 Referring Physician kirstin abdullahi Reason for Consultation Acute respiratory failure History of Present Illness HPI The patient is a 34 year old gentleman who presented with altered mental status following an overdose when he ingested a bottle of trazodone pills. Patient had to be intubated for airway protection and is currently on mechanical ventilation Past Medical History Cardiac: No pertinent Hx Pulmonary: No pertinent Hx Central Nervous System: No pertinent Hx GI: No pertinent Hx Hemotology/Oncology: No pertinent Hx Hepatobiliary: No pertinent Hx Psychiatric: No pertinent Hx Musculoskeletal: No pertinent Hx Rheumotologic: No pertinent Hx Infectious Disease: No peritnent Hx ENT: No pertinent Hx Renal/: No pertinent Hx Endocrine: No pertinent Hx Dermatology: No pertinent Hx Past Surgical History: No pertinent Hx Family History: No pertinent Hx Review of Systems Comments Intubated H&P Exam Vital Signs Vital Signs Date Time Temp Pulse Resp B/P (MAP) Pulse Ox O2 Delivery O2 Flow Rate FiO2 01/14/25 13:30 116/85 01/14/25 13:11 66 18 100 30 01/14/25 12:00 99.3 99.3 01/14/25 08:00 Mechanical Ventilator+ 01/12/25 21:45 25 General Appeara: Well developed, Well nourished Head Exam: Normal inspection Neck Exam: Normal inspection, Non-tender, Normal alignment Eye Exam: bilateral eye Normal inspection, bilateral eye PERRL, bilateral eye EOMI Ear Exam: bilateral ear Auricle normal, bilateral ear Canal normal, bilateral ear TM normal Nasal Exam: Normal inspection Mouth: Normal Inspection Pulmonary/Respiratory: Normal inspection, Normal breath sounds, Chest non- tender Cardiovascular/Chest: Normal inspection Peripheral Pulses: 4+ carotid (R), 4+ carotid (L) Abdominal Exam: Normal bowel sounds, Soft Labs/Xrays Labs Test 01/14/25 06:12 01/14/25 04:55 01/14/25 03:45 01/13/25 01:18 Range/Units Blood Gas Specimen Type Arterial Blood Gas Sample Site Right brachial Blood Gas Patient Temperature 37.0 Arterial Blood Date Drawn [id number] Arterial Blood pH 7.450 7.350-7.450 Arterial Blood Partial Pressure CO2 39.3 35.0-48.0 mmHg Arterial Blood Partial Pressure O2 116.8 H 83.0-108.0 mmHg Arterial Blood HCO3 26.7 21.0-28.0 mmol/L Arterial Blood Oxygen Saturation 98.1 H 94.0-98.0 % Arterial Blood Base Excess 2.6 -2.0-3.0 mmol/L Arterial Blood Oxyhemoglobin 97.5 94.0-98.0 % Arterial Blood Carboxyhemoglobin 0.3 L 0.5-1.5 % Arterial Blood Methemoglobin 0.3 0.0-1.5 % Westley Test Yes Blood Gas Total Hemoglobin 13.50 13.5-17.5 g/dL Blood Gas Set Respiration Rate 18.0 Blood Gas Modality Vent - ac FiO2 % 40.0 Blood Gas Tidal Volume 500.0 Blood Gas PEEP or CPAP 5.0 POC Glucose 85 70-106 mg/dl White Blood Count 12.4 H 4.4-10.8 10^3/uL Red Blood Count 4.40 L 4.5-5.90 10^6/uL Hemoglobin 13.0 L 13.5-17.5 g/dL Hematocrit 39.1 L 41.0-53.0 % Mean Corpuscular Volume 88.9 80.0-100.0 fL Mean Corpuscular Hemoglobin 29.6 28.0-32.0 pg Mean Corpuscular Hemoglobin Concent 33.3 32.0-36.0 g/dL Red Cell Distribution Width 13.8 11.8-14.3 % Platelet Count 199 140-450 10^3/uL Mean Platelet Volume 7.4 6.9-10.8 fL Neutrophils (%) (Auto) 74.2 37.0-80.0 % Lymphocytes (%) (Auto) 13.4 10.0-50.0 % Monocytes (%) (Auto) 8.3 0.0-12.0 % Eosinophils (%) (Auto) 3.1 0.0-7.0 % Basophils (%) (Auto) 1.0 0.0-2.0 % Neutrophils # (Auto) 9.2 H 1.6-8.6 10 ^3/uL Lymphocytes # (Auto) 1.7 0.4-5.4 10 ^3/uL Monocytes # (Auto) 1.0 0-1.3 10 ^3/uL Eosinophils # (Auto) 0.4 0-0.8 10 ^3/uL Basophils # (Auto) 0.1 0-0.2 10 ^3/uL Nucleated Red Blood Cells 0.0 % Sodium Level 142 136-145 mmol/L Potassium Level 3.9 3.5-5.1 mmol/L Chloride Level 106 98-107 mmol/L Carbon Dioxide Level 27 20-31 mmol/L Anion Gap 9 5-15 Blood Urea Nitrogen 6 L 9-23 mg/dL Creatinine 1.24 0.700-1.30 mg/dL Glomerular Filtration Rate Calc 78 >90 mL/min BUN/Creatinine Ratio 4.8 L 10.0-20.0 Serum Glucose 107 H 74-106 mg/dL Calcium Level 8.6 L 8.7-10.4 mg/dL Magnesium Level 1.8 1.6-2.6 mg/dL Total Bilirubin 1.0 0.2-1.0 mg/dL Aspartate Amino Transferase (AST) 20 13-40 U/L Alanine Aminotransferase (ALT) 19 7-40 U/L Alkaline Phosphatase 74 46-116 U/L Total Protein 6.0 5.7-8.2 g/dL Albumin 3.9 3.2-4.8 g/dL Troponin I High Sensitivity < 3 L </=54 ng/L Test 01/13/25 00:26 01/12/25 22:53 01/12/25 22:36 01/12/25 22:30 Range/Units Lactic Acid Level 4.2 *H 0.4-2.0 mmol/L Blood Gas Spontaneous Rate 18 Blood Gas Spontaneous Tidal Volume 505 Specimen Drawn By Johana mccoy rt B-Type Natriuretic Peptide 9.14 0-100 pg/mL Lipase 36 12-53 U/L Beta-Hydroxybutyric Acid 0.147 < 0.4 mmol/L Salicylates Level < 3.0 -30 mg/dL Acetaminophen Level < 2.0 L 10.0-20.0 UG/ML Plasma/Serum Blood Alcohol 356.3 H <10 mg/dL Urine Color Light-yellow Yellow Urine Clarity Clear Clear Urine pH 5.5 5.0-9.0 Urine Specific [place] 1.014 1.001-1.035 Urine Protein 1+ H Negative Urine Ketones Negative Negative Urine Blood 1+ H Negative /uL Urine Nitrite Negative Negative Urine Bilirubin Negative Negative Urine Urobilinogen Normal Negative mg/dL Urine Leukocyte Esterase Negative Negative /uL Urine RBC 29 0 - 3 /hpf Urine Microscopic WBC 4 H 0-3 /HPF Urine Squamous Epithelial Cells None seen <5 /hpf Urine Bacteria Few H None Seen /hpf Urine Granular Casts Mod 0 /lpf Urine Glucose Normal Normal mg/dL Urine Opiates Screen Neg NEGATIVE Urine Fentanyl Screen Neg NEGATIVE Urine Barbiturates Screen Neg NEGATIVE Urine Phencyclidine Screen Neg NEGATIVE Urine Amphetamines Screen Neg NEGATIVE Urine Benzodiazepines Screen Neg NEGATIVE Urine Cocaine Screen Neg NEGATIVE Urine Cannabinoids Screen Neg NEGATIVE Microbiology Date/Time Source Procedure Growth Status 01/12/25 22:36 Blood Blood Culture - Preliminary NO GROWTH AFTER 24 HOURS OF INCUBATION. Resulted 01/12/25 21:50 Trachea Gram Stain - Final Resulted 01/12/25 21:50 Trachea Respiratory Culture - Preliminary Resulted Assessment/Plan Plan Acute hypoxemic respiratory failure Suicidal ideation Mechanical ventilation Fever Patient is seen and examined on the ICU Labs reviewed Imaging studies Management plan Sedation currently Versed Pressors as needed to keep mean arterial pressure above 65 Tylenol full fever Obtain cultures but off empiric broad-spectrum antibiotics Monitor EKG and labs Per poison control IV fluids GI prophylaxis/DVT prophylaxis When more stable sedation holiday And weaning Critical care time 35 minutes Plan discussed with: Other (rn) SAMUEL LOPEZ MD January 14, 2025 14:00
--- NOTE | 2025-01-14 14:02 | DVHPN2 ---
Progress Note - Dictate Date Seen: January 14, 2025 Medical Necessity Reason Pt with a Central, PICC or Fol: No vital signs Vital Sign Date Time Temp Pulse Resp B/P (MAP) Pulse Ox O2 Delivery O2 Flow Rate FiO2 01/14/25 13:30 116/85 01/14/25 13:11 66 18 100 30 01/14/25 12:00 99.3 99.3 01/14/25 08:00 Mechanical Ventilator+ 01/12/25 21:45 25 Total Intake and Output 01/13/25 01/13/25 01/14/25 15:00 23:00 07:00 Intake Total 151.0 ml 848.00 ml 785.75 ml Output Total 500 ml 600 ml Balance 151.0 ml 348.00 ml 185.75 ml medications Current Medications Medications Dose Ordered Sig/Connor Route Start Time Stop Time Status Last Admin Dose Admin Midazolam HCl 50 ml @ 1 mls/hr Q24H IV 01/12/25 22:15 01/14/25 11:22 12 MLS/HR Fentanyl Citrate 250 ml @ 2.5 mls/hr Q24H IV 01/12/25 22:15 01/14/25 13:30 20 MLS/HR Norepinephrine Bitartrate 250 ml @ 3.75 mls/hr Q24H IV 01/13/25 01:00 01/13/25 22:22 26.25 MLS/HR Ceftriaxone Sodium 50 ml @ 100 mls/hr DAILY@09 IV 01/13/25 04:45 01/14/25 09:18 100 MLS/HR Ondansetron HCl 4 mg Q4HP PRN IV 01/13/25 04:45 Nitroglycerin 0.4 mg Q5MINP PRN SL 01/13/25 04:45 Morphine Sulfate 2 mg Q30M PRN IV 01/13/25 04:45 Pantoprazole Sodium 40 mg DAILY IV 01/13/25 10:00 01/14/25 09:18 40 MG Thiamine HCl 100 mg DAILY IV 01/14/25 10:00 01/14/25 09:18 100 MG Multivitamins 1 tab DAILY PO 01/14/25 10:00 Sodium Chloride 1,000 ml @ 75 mls/hr [id number] IV 01/14/25 07:45 01/14/25 07:56 75 MLS/HR Acetaminophen 650 mg Q6HP PRN GT 01/14/25 07:45 01/14/25 10:00 650 MG Enteral Nutritional Formula 1,000 ml 30ML/HR GT 01/14/25 09:45 01/14/25 13:31 1,000 ML Chlordiazepoxide HCl 25 mg BID NG 01/14/25 22:00 laboratory and microbiology Laboratory Tests 01/14/25 03:45 Test 01/14/25 03:45 Range/Units Serum Glucose 107 H 74-106 mg/dL Assessment/Plan Acute hypoxemic respiratory failure Suicidal ideation Mechanical ventilation Fever Patient is seen and examined on the ICU Labs reviewed Imaging studies Management plan Sedation currently Versed librium added pt agitated requires high sedation Pressors as needed to keep mean arterial pressure above 65 Tylenol full fever cultures empiric broad-spectrum antibiotics Monitor EKG and labs Per poison control IV fluids GI prophylaxis/DVT prophylaxis When more stable sedation holiday And weaning Critical care time 35 minutes Plan discussed with: Other (rn) SAMUEL LOPEZ MD January 14, 2025 14:02
[2025-01-14] MEDS: chlordiazePOXIDE HCL 25 MG CAP NG SCH (21:33)
[2025-01-15] VITALS (104 sets, daily range): BP systolic 82–130; BP diastolic 52–98; PULSE 56–113; RESP 13–22; TEMP 96.4–102.7; O2SAT 94–100
[2025-01-15 04:23] LABS: Basophils # (auto) 0 10 ^3/uL (0-0.2); Basophils % (auto) 0.3 % (0.0-2.0); Eosinophils # (auto) 0.4 10 ^3/uL (0-0.8); Eosinophils % (auto) 2.8 % (0.0-7.0); Hematocrit 40.9 % (41.0-53.0); Hemoglobin 13.3 g/dL (13.5-17.5); Lymphocytes # (auto) 1.1 10 ^3/uL (0.4-5.4); Mean Corpuscular Hemoglobin 29.6 pg (28.0-32.0); Mean Corpuscular Hgb Conc. 32.6 g/dL (32.0-36.0); Monocytes # (auto) 1.2 10 ^3/uL (0-1.3); Monocytes % (auto) 8.4 % (0.0-12.0); Neutrophils # (auto) 11.5 10 ^3/uL (1.6-8.6); Neutrophils % (auto) 80.5 % (37.0-80.0); Platelet Count (auto) 173 10^3/uL (140-450); Red Cell Distribution Width 13.8 % (11.8-14.3); White Blood Cell 14.2 10^3/uL (4.4-10.8)
[2025-01-15] MEDS ORDERED: VANCOMYCIN PER PHARMACY 0 MG IV SCH (04:45)
[2025-01-15] MEDS: VANCOMYCIN 1GM/200ML PM 200 ML IV SCH ×2 (05:04→20:36)
[2025-01-15 06:35] LABS: Base Excess 0.1 mmol/L (-2.0-3.0)
--- NOTE | 2025-01-15 08:55 | DVHDS2 ---
Discharge Summary Date of Admission January 13, 2025 at 04:33 Date of Discharge: January 15, 2025 Admitting Diagnosis Acute respiratory failure Labs/Diagnostic Data: Laboratory Results Test 01/15/25 06:30 01/15/25 03:09 01/14/25 04:55 01/14/25 03:45 Blood Gas Specimen Type Arterial Blood Gas Sample Site Right radial Blood Gas Patient Temperature 37.0 Arterial Blood Date Drawn [id number] Arterial Blood pH 7.444 (7.350-7.450) Arterial Blood Partial Pressure CO2 35.5 mmHg (35.0-48.0) Arterial Blood Partial Pressure O2 83.6 mmHg (83.0-108.0) Arterial Blood HCO3 23.8 mmol/L (21.0-28.0) Arterial Blood Oxygen Saturation 96.8 % (94.0-98.0) Arterial Blood Base Excess 0.1 mmol/L (-2.0-3.0) Arterial Blood Oxyhemoglobin 96.4 % (94.0-98.0) Arterial Blood Carboxyhemoglobin 0.3 % (0.5-1.5) Arterial Blood Methemoglobin 0.1 % (0.0-1.5) Westley Test Modified Blood Gas Total Hemoglobin 12.90 g/dL (13.5-17.5) Blood Gas Set Respiration Rate 18.0 Blood Gas Modality Vent - ac FiO2 % 30.0 Blood Gas Tidal Volume 500.0 Blood Gas PEEP or CPAP 5.0 White Blood Count 14.2 10^3/uL (4.4-10.8) Red Blood Count 4.50 10^6/uL (4.5-5.90) Hemoglobin 13.3 g/dL (13.5-17.5) Hematocrit 40.9 % (41.0-53.0) Mean Corpuscular Volume 91.0 fL (80.0-100.0) Mean Corpuscular Hemoglobin 29.6 pg (28.0-32.0) Mean Corpuscular Hemoglobin Concent 32.6 g/dL (32.0-36.0) Red Cell Distribution Width 13.8 % (11.8-14.3) Platelet Count 173 10^3/uL (140-450) Mean Platelet Volume 7.9 fL (6.9-10.8) Neutrophils (%) (Auto) 80.5 % (37.0-80.0) Lymphocytes (%) (Auto) 8.0 % (10.0-50.0) Monocytes (%) (Auto) 8.4 % (0.0-12.0) Eosinophils (%) (Auto) 2.8 % (0.0-7.0) Basophils (%) (Auto) 0.3 % (0.0-2.0) Neutrophils # (Auto) 11.5 10 ^3/uL (1.6-8.6) Lymphocytes # (Auto) 1.1 10 ^3/uL (0.4-5.4) Monocytes # (Auto) 1.2 10 ^3/uL (0-1.3) Eosinophils # (Auto) 0.4 10 ^3/uL (0-0.8) Basophils # (Auto) 0 10 ^3/uL (0-0.2) Nucleated Red Blood Cells 0.0 % POC Glucose 85 mg/dl (70-106) Sodium Level 142 mmol/L (136-145) Potassium Level 3.9 mmol/L (3.5-5.1) Chloride Level 106 mmol/L (98-107) Carbon Dioxide Level 27 mmol/L (20-31) Anion Gap 9 (5-15) Blood Urea Nitrogen 6 mg/dL (9-23) Creatinine 1.24 mg/dL (0.700-1.30) Glomerular Filtration Rate Calc 78 mL/min (>90) BUN/Creatinine Ratio 4.8 (10.0-20.0) Serum Glucose 107 mg/dL (74-106) Calcium Level 8.6 mg/dL (8.7-10.4) Magnesium Level 1.8 mg/dL (1.6-2.6) Total Bilirubin 1.0 mg/dL (0.2-1.0) Aspartate Amino Transferase (AST) 20 U/L (13-40) Alanine Aminotransferase (ALT) 19 U/L (7-40) Alkaline Phosphatase 74 U/L (46-116) Total Protein 6.0 g/dL (5.7-8.2) Albumin 3.9 g/dL (3.2-4.8) Test 01/13/25 01:18 01/13/25 00:26 01/12/25 22:53 01/12/25 22:36 Troponin I High Sensitivity < 3 ng/L (</=54) Lactic Acid Level 4.2 mmol/L (0.4-2.0) Blood Gas Spontaneous Rate 18 Blood Gas Spontaneous Tidal Volume 505 Specimen Drawn By Johana mccoy rt B-Type Natriuretic Peptide 9.14 pg/mL (0-100) Lipase 36 U/L (12-53) Beta-Hydroxybutyric Acid 0.147 mmol/L (< 0.4) Salicylates Level < 3.0 mg/dL (-30) Acetaminophen Level < 2.0 UG/ML (10.0-20.0) Plasma/Serum Blood Alcohol 356.3 mg/dL (<10) Test 01/12/25 22:30 Urine Color Light-yellow (Yellow) Urine Clarity Clear (Clear) Urine pH 5.5 (5.0-9.0) Urine Specific [place] 1.014 (1.001-1.035) Urine Protein 1+ (Negative) Urine Ketones Negative (Negative) Urine Blood 1+ /uL (Negative) Urine Nitrite Negative (Negative) Urine Bilirubin Negative (Negative) Urine Urobilinogen Normal mg/dL (Negative) Urine Leukocyte Esterase Negative /uL (Negative) Urine RBC 29 /hpf (0 - 3) Urine Microscopic WBC 4 /HPF (0-3) Urine Squamous Epithelial Cells None seen /hpf (<5) Urine Bacteria Few /hpf (None Seen) Urine Granular Casts Mod /lpf (0) Urine Glucose Normal mg/dL (Normal) Urine Opiates Screen Neg (NEGATIVE) Urine Fentanyl Screen Neg (NEGATIVE) Urine Barbiturates Screen Neg (NEGATIVE) Urine Phencyclidine Screen Neg (NEGATIVE) Urine Amphetamines Screen Neg (NEGATIVE) Urine Benzodiazepines Screen Neg (NEGATIVE) Urine Cocaine Screen Neg (NEGATIVE) Urine Cannabinoids Screen Neg (NEGATIVE) Other Laboratory Tests 01/15/25 03:09 01/14/25 03:45 Brief Hx & Hospital Course: History of Present Illness 35-year-old male presents for evaluation of possible overdose. Patient is currently sedated and intubated. Per ED records and personnel patient took an unknown amount of trazodone earlier in the attempt to end his life. Patient presented with agonal breathing and was emergently intubated in the emergency department for airway protection. No family at the bedside to provide further history. Course of hospitalization: Patient was continued on mechanical ventilation with sedation. Patient's hemodynamic stability has been maintained. Patient was started on tube feeding. Electrolytes has been repleted. Patient was noted to have shock, with the patient now off vasopressor therapy. Patient was now stable to transfer to [facility]. While at this facility, patient will have spontaneous breathing trial once sedation has been weaned. Patient was treated with folic acid, MVI, thiamine for noted alcoholism. Family to be updated. Physical examination General: Chemically sedated. On mechanical ventilation. Eyes: EOMI. Anicteric. HENT: Moist mucous membranes. Lungs: Clear to auscultation bilaterally. No accessory muscle use. Cardiovascular: Regular rate and rhythm. No murmur. No JVD. Abdomen: Soft, non-tender and non-distended. No palpable masses. Extremities: No edema. Non-tender. Skin: No rashes or lesions. Warm. Neurologic: Unable to assess secondary to sedation Psychiatric: Cooperative. Appropriate mood and affect. Critical care time spent with patient discussing and formulating plan of care: 40 minutes. This does not include time spent performing procedures. This medical document was created using an electronic medical record system with [employer] dictation system. Although this document has been carefully reviewed, there may still be some phonetic and typographical errors. These areas are purely typographical due to imperfections of the software programs, and do not reflect any compromise in the patient's medical care. Consults/Reason for consult Pulmonology: Respiratory failure. Condition at Discharge: Guarded Final Diagnosis/Problems List Toxic metabolic encephalopathy Acute hypoxic respiratory failure with mechanical ventilation Secondary diagnosis: -alcoholism -intentional overdose with probable suicidal ideation with trazodone -sirs -acute hypoxic respiratory failure with mechanical ventilation -hypotension secondary to sedation Discharge Disposition: Acute Care Facility Discharge Instruct/Medications Diet: See Comment Diet comment: Jevity tube feeding Activity: No Restrictions, As Tolerated Follow Up/Referral: Per accepting hospitalist Medications: Refer to medication reconciliation form 36 Discharge Statement: "Patient was advised to return to the ER or call 911 if any headaches, dizziness, shortness of breath, chest pain, abdominal pain, bleeding, fevers, or worsening of medical condition. Patient was counseled about treatment plan, medications, possible side effects, patientverbalized understanding. All questions were answered to the best of my ability. This discharge took greater then 30 minutes in planning, reviewing documentation, counseling the patient, and discussing with other team members." ASSESSMENT ASSESSMENT Assessment Toxic metabolic encephalopathy Acute hypoxic respiratory failure with mechanical ventilation Date of Service: January 15, 2025 Billing Provider: FARHAN MEDEIROS NP Common Visit Codes: 00650-BWL/OBS DISCH DAY >30min, 22520-[id number] CARE 30-74 MIN FARHAN MEDEIROS NP January 15, 2025 08:55
--- NOTE | 2025-01-15 12:13 | DVHPN2 ---
Progress Note - Dictate Date Seen: January 15, 2025 Medical Necessity Reason Pt with a Central, PICC or Fol: No vital signs Vital Sign Date Time Temp Pulse Resp B/P (MAP) Pulse Ox O2 Delivery O2 Flow Rate FiO2 01/15/25 11:06 70 18 96/58 (71) 99 30 01/15/25 10:15 96.6 205.9 01/15/25 10:00 Mechanical Ventilator+ Total Intake and Output 01/14/25 01/14/25 01/15/25 15:00 23:00 07:00 Intake Total 975.500 ml 947.000 ml 1373.625 ml Output Total 1500 ml Balance 975.500 ml 947.000 ml -126.375 ml medications Current Medications Medications Dose Ordered Sig/Connor Route Start Time Stop Time Status Last Admin Dose Admin Midazolam HCl 50 ml @ 1 mls/hr Q24H IV 01/12/25 22:15 01/15/25 08:52 15 MLS/HR Fentanyl Citrate 250 ml @ 2.5 mls/hr Q24H IV 01/12/25 22:15 01/15/25 02:43 20 MLS/HR Norepinephrine Bitartrate 250 ml @ 3.75 mls/hr Q24H IV 01/13/25 01:00 01/14/25 15:22 9.375 MLS/HR Ceftriaxone Sodium 50 ml @ 100 mls/hr DAILY@09 IV 01/13/25 04:45 01/15/25 09:41 100 MLS/HR Ondansetron HCl 4 mg Q4HP PRN IV 01/13/25 04:45 Nitroglycerin 0.4 mg Q5MINP PRN SL 01/13/25 04:45 Morphine Sulfate 2 mg Q30M PRN IV 01/13/25 04:45 Pantoprazole Sodium 40 mg DAILY IV 01/13/25 10:00 01/15/25 09:42 40 MG Thiamine HCl 100 mg DAILY IV 01/14/25 10:00 01/15/25 09:42 100 MG Multivitamins 1 tab DAILY PO 01/14/25 10:00 01/15/25 09:42 1 TAB Sodium Chloride 1,000 ml @ 75 mls/hr [id number] IV 01/14/25 07:45 01/15/25 08:26 75 MLS/HR Acetaminophen 650 mg Q6HP PRN GT 01/14/25 07:45 01/15/25 04:11 650 MG Enteral Nutritional Formula 1,000 ml 30ML/HR GT 01/14/25 09:45 01/14/25 13:31 1,000 ML Chlordiazepoxide HCl 25 mg BID NG 01/14/25 22:00 01/15/25 09:42 25 MG Vancomycin HCl 0 ml @ 0 mls/hr UD IV 01/15/25 04:45 laboratory and microbiology Laboratory Tests 01/15/25 03:09 01/14/25 03:45 Test 01/14/25 03:45 Range/Units Serum Glucose 107 H 74-106 mg/dL Assessment/Plan Acute hypoxemic respiratory failure Suicidal ideation Mechanical ventilation Fever Patient is seen and examined on the ICU Labs reviewed Imaging studies events none Management plan Sedation holiday and weaning vent support ok to use precedx extubate when ready Pressors as needed to keep mean arterial pressure above 65 Tylenol for fever cultures empiric broad-spectrum antibiotics Monitor EKG and labs Per poison control IV fluids GI prophylaxis/DVT prophylaxis Critical care time 35 minutes Dietary Evaluation Review Comments: Nutrition Recommendation: 1) TF Jevity 1.2 Stefano @ 75ml/hr x 24 hr (goal). Start @ 20ml/hr, increase 10ml/hr Q4H until goal rate is reached. TF at goal volume provides 100% energy & protein needs - 2160 kcal, 100 gm protein, 1453 ml free water 2) Water flush 200ml Q6H if allowed 3) TPN if NPO>7 days 4) Monitor I/O, weight trend, lab values and skin integrity Expected Outcomes/Goals: To meet >75% estimated needs Fu 2-3 days Plan discussed with: Other (rn) SAMUEL LOPEZ MD January 15, 2025 12:13
[2025-01-16] VITALS (92 sets, daily range): BP systolic 82–137; BP diastolic 50–93; PULSE 60–95; RESP 14–31; TEMP 97.2–99.9; O2SAT 95–100
[2025-01-16] MEDS: DEXMEDETOMIDINE HCL IN D5W 100 ML IV SCH (04:23)
[2025-01-16 06:45] LABS: Base Excess -2.1 mmol/L (-2.0-3.0)
[2025-01-16 07:21] LABS: Basophils # (auto) 0 10 ^3/uL (0-0.2); Basophils % (auto) 0.2 % (0.0-2.0); Eosinophils # (auto) 0.3 10 ^3/uL (0-0.8); Eosinophils % (auto) 2.5 % (0.0-7.0); Hematocrit 36.9 % (41.0-53.0); Hemoglobin 12.2 g/dL (13.5-17.5); Lymphocytes # (auto) 0.8 10 ^3/uL (0.4-5.4); Lymphocytes % (auto) 6.9 % (10.0-50.0); Mean Corpuscular Hemoglobin 29.5 pg (28.0-32.0); Mean Corpuscular Hgb Conc. 33.2 g/dL (32.0-36.0); Monocytes # (auto) 0.7 10 ^3/uL (0-1.3); Monocytes % (auto) 6.6 % (0.0-12.0); Neutrophils # (auto) 9.4 10 ^3/uL (1.6-8.6); Neutrophils % (auto) 83.8 % (37.0-80.0); Nucleated Red Blood Cells % 0.1 %; Platelet Count (auto) 185 10^3/uL (140-450); Red Blood Cells 4.14 10^6/uL (4.5-5.90); Red Cell Distribution Width 13.9 % (11.8-14.3); White Blood Cell 11.2 10^3/uL (4.4-10.8)
[2025-01-16 07:22] LABS: Alanine Aminotransferase 25 U/L (7-40); Alkaline Phosphatase 85 U/L (46-116); Anion Gap 8 (5-15); Calcium 9.3 mg/dL (8.7-10.4); Carbon Dioxide 25 mmol/L (20-31); Glucose 91 mg/dL (74-106); Potassium 3.8 mmol/L (3.5-5.1); Sodium 142 mmol/L (136-145); Total Protein 5.9 g/dL (5.7-8.2)
[2025-01-16 07:23] LABS: Albumin 3.6 g/dL (3.2-4.8); Bilirubin, Total 0.5 mg/dL (0.2-1.0)
[2025-01-16 07:30] LABS: Aspartate Aminotransferase 82 U/L (13-40); BUN/Creatinine Ratio 4.7 (10.0-20.0); Blood Urea Nitrogen < 5 mg/dL (9-23); Chloride 109 mmol/L (98-107)
--- NOTE | 2025-01-16 08:09 | DVHPN2 ---
Subjective Patient intubated and sedated Reviewed: Care Plan, H&P, Labs, Medications Changes from previous H/P or p: No Changes General: Per HPI Objective Vitals Vital Signs Date Time Temp Pulse Resp B/P (MAP) Pulse Ox O2 Delivery O2 Flow Rate FiO2 01/16/25 06:45 97.5 60 18 106/75 (85) 96 207.5 01/16/25 06:15 30 01/16/25 06:00 Mechanical Ventilator+ Intake/Output Intake and Output 01/16/25 07:00 Intake Total 3394.49 ml Output Total 3300 ml Balance 94.49 ml Intake Oral 218 ml IV Total 2966.49 ml Tube Feeding 210 ml Output Urine Total 3300 ml Stool Total 0 ml General Appearance: moderate distress, Other (Chemically sedated) HEENT: Atraumatic, PERRLA Lungs: Clear to auscultation, Normal air movement, Other (Mechanical ventilation) Cardiovascular: Normal S1, Normal S2, Other (Sinus rhythm with prolonged QTC greater than 500) Abdomen: Other (Unable to assess) Skin: Dry, Intact, Other (Unable to assess) Psych/Mental Status: Other (Unable to assess) Medications Current Medications Medications Dose Ordered Sig/Connor Route Start Time Stop Time Status Last Admin Dose Admin Midazolam HCl 50 ml @ 1 mls/hr Q24H IV 01/12/25 22:15 01/16/25 03:26 10 MLS/HR Fentanyl Citrate 250 ml @ 2.5 mls/hr Q24H IV 01/12/25 22:15 01/16/25 01:12 22.5 MLS/HR Norepinephrine Bitartrate 250 ml @ 3.75 mls/hr Q24H IV 01/13/25 01:00 01/14/25 15:22 9.375 MLS/HR Ceftriaxone Sodium 50 ml @ 100 mls/hr DAILY@09 IV 01/13/25 04:45 01/15/25 09:41 100 MLS/HR Ondansetron HCl 4 mg Q4HP PRN IV 01/13/25 04:45 Nitroglycerin 0.4 mg Q5MINP PRN SL 01/13/25 04:45 Morphine Sulfate 2 mg Q30M PRN IV 01/13/25 04:45 Pantoprazole Sodium 40 mg DAILY IV 01/13/25 10:00 01/15/25 09:42 40 MG Thiamine HCl 100 mg DAILY IV 01/14/25 10:00 01/15/25 09:42 100 MG Multivitamins 1 tab DAILY PO 01/14/25 10:00 01/15/25 09:42 1 TAB Sodium Chloride 1,000 ml @ 75 mls/hr [id number] IV 01/14/25 07:45 01/15/25 23:19 75 MLS/HR Acetaminophen 650 mg Q6HP PRN GT 01/14/25 07:45 01/15/25 21:19 650 MG Enteral Nutritional Formula 1,000 ml 30ML/HR GT 01/14/25 09:45 01/14/25 13:31 1,000 ML Chlordiazepoxide HCl 25 mg BID NG 01/14/25 22:00 01/15/25 22:00 25 MG Vancomycin HCl 0 ml @ 0 mls/hr UD IV 01/15/25 04:45 Vancomycin HCl 200 ml @ 200 mls/hr Q8H IV 01/15/25 20:00 01/16/25 03:58 200 MLS/HR Laboratory Results Laboratory Tests 01/16/25 03:05 Chemistry Test 01/16/25 03:05 Albumin 3.6 g/dL (3.2-4.8) Calcium Level 9.3 mg/dL (8.7-10.4) Total Protein 5.9 g/dL (5.7-8.2) LFT Test 01/16/25 03:05 Alanine Aminotransferase (ALT) 25 U/L (7-40) Alkaline Phosphatase 85 U/L (46-116) Aspartate Amino Transferase (AST) 82 U/L (13-40) H Total Bilirubin 0.5 mg/dL (0.2-1.0) Urinalysis Test 01/12/25 22:30 Urine Color Light-yellow (Yellow) Urine Clarity Clear (Clear) Urine pH 5.5 (5.0-9.0) Urine Specific [place] 1.014 (1.001-1.035) Urine Protein 1+ (Negative) H Urine Ketones Negative (Negative) Urine Blood 1+ /uL (Negative) H Urine Nitrite Negative (Negative) Urine Bilirubin Negative (Negative) Urine Urobilinogen Normal mg/dL (Negative) Urine Leukocyte Esterase Negative /uL (Negative) Urine RBC 29 /hpf (0 - 3) Urine Microscopic WBC 4 /HPF (0-3) H Urine Squamous Epithelial Cells None seen /hpf (<5) Urine Bacteria Few /hpf (None Seen) H Urine Granular Casts Mod /lpf (0) Urine Glucose Normal mg/dL (Normal) Blood Gas Results Test 01/16/25 06:38 Arterial Blood pH 7.358 (7.350-7.450) FiO2 % 30.0 Microbiology Microbiology Date/Time Source Procedure Growth Status 01/13/25 23:42 Blood Blood Culture - Preliminary NO GROWTH AFTER 48 HOURS OF INCUBATION. Resulted 01/13/25 22:00 Nose MRSA Screen - Final Complete Labs and/or images reviewed: Labs reviewed by me, Image(s) reviewed by me Assessment/Plan Assessment/Plan Impression: -toxic metabolic encephalopathy -alcoholism -intentional overdose with probable suicidal ideation with trazodone -sirs -acute hypoxic respiratory failure with mechanical ventilation -hypotension secondary to sedation Plan: Events: Continues to be off of vasopressor therapy. Patient is stable overnight. Continue weaning of sedation per possible CPAP trial. Patient stable to transfer to [facility]. -continue tube feeding -antipyretics -QTC within normal range. Continue electrolyte replete -bronchodilators p.r.n. -repeat labs, chest x-ray, ABG in a.m. -PUD, DVT prophylaxis -social service consultation to transfer to [facility]. -long discussion made with patient's brother as well as father yesterday. Critical care time spent with patient discussing and formulating plan of care: 90 minutes. This does not include time spent performing procedures. This medical document was created using an electronic medical record system with [employer] dictation system. Although this document has been carefully reviewed, there may still be some phonetic and typographical errors. These areas are purely typographical due to imperfections of the software programs, and do not reflect any compromise in the patient's medical care. Plan discussed with: Patient, Other (RN) My Orders Orders - FARHAN MEDEIROS NP Procedure Category Date Status Time Cpap Trial For Am ORDERS 01/15/25 Transmitted 08:40 Cpap/Sed Vacation Med ORDERS 01/15/25 Transmitted Weaning 08:40 Dexmedetomidine Hcl PHA 01/15/25 In Process In D5w (Precedex) 08:45 * Senior Data Developer CONS 01/15/25 Transmitted Consult Discharge DISCHARGE 01/15/25 Transmitted 08:49 Imaging Transfer ORDERS 01/15/25 Transmitted Request 15:36 Abg W/ Co-Ox RT 01/16/25 Logged 06:00 * Senior Data Developer CONS 01/16/25 Transmitted Consult Basic Metabolic Panel LAB 01/17/25 Verified 04:00 Complete Blood Count LAB 01/17/25 Verified 04:00 Date of Service: January 16, 2025 Billing Provider: FARHAN MEDEIROS NP Common Visit Codes: 06268-[id number] CARE 30-74 MIN, [id number] CARE-EACH +30MIN FARHAN MEDEIROS NP January 16, 2025 08:09
--- NOTE | 2025-01-16 15:09 | DVHPN2 ---
Progress Note - Dictate Date Seen: January 16, 2025 Medical Necessity Reason Pt with a Central, PICC or Fol: No vital signs Vital Sign Date Time Temp Pulse Resp B/P (MAP) Pulse Ox O2 Delivery O2 Flow Rate FiO2 01/16/25 14:15 95 31 95 01/16/25 14:00 30 01/16/25 14:00 Mechanical Ventilator+ 01/16/25 14:00 98.8 98.8 Total Intake and Output 01/15/25 01/15/25 01/16/25 13:00 21:00 05:00 Intake Total 1426.25 ml 1228.5 ml 1188.58 ml Output Total 1500 ml 1800 ml Balance 1426.25 ml -271.5 ml -611.42 ml medications Current Medications Medications Dose Ordered Sig/Connor Route Start Time Stop Time Status Last Admin Dose Admin Midazolam HCl 50 ml @ 1 mls/hr Q24H IV 01/12/25 22:15 01/16/25 03:26 10 MLS/HR Fentanyl Citrate 250 ml @ 2.5 mls/hr Q24H IV 01/12/25 22:15 01/16/25 01:12 22.5 MLS/HR Norepinephrine Bitartrate 250 ml @ 3.75 mls/hr Q24H IV 01/13/25 01:00 01/14/25 15:22 9.375 MLS/HR Ondansetron HCl 4 mg Q4HP PRN IV 01/13/25 04:45 Nitroglycerin 0.4 mg Q5MINP PRN SL 01/13/25 04:45 Morphine Sulfate 2 mg Q30M PRN IV 01/13/25 04:45 Pantoprazole Sodium 40 mg DAILY IV 01/13/25 10:00 01/16/25 08:56 40 MG Thiamine HCl 100 mg DAILY IV 01/14/25 10:00 01/16/25 08:56 100 MG Multivitamins 1 tab DAILY PO 01/14/25 10:00 01/16/25 08:56 1 TAB Sodium Chloride 1,000 ml @ 75 mls/hr [id number] IV 01/14/25 07:45 01/16/25 12:31 75 MLS/HR Acetaminophen 650 mg Q6HP PRN GT 01/14/25 07:45 01/15/25 21:19 650 MG Enteral Nutritional Formula 1,000 ml 30ML/HR GT 01/14/25 09:45 01/14/25 13:31 1,000 ML Vancomycin HCl 0 ml @ 0 mls/hr UD IV 01/15/25 04:45 Vancomycin HCl 200 ml @ 200 mls/hr Q8H IV 01/15/25 20:00 01/16/25 12:31 200 MLS/HR laboratory and microbiology Laboratory Tests 01/16/25 03:05 Test 01/16/25 03:05 Range/Units Serum Glucose 91 74-106 mg/dL Assessment/Plan Impression Acute hypoxemic respiratory failure Suicidal ideation Mechanical ventilation Fever Patient is seen and examined on the ICU Events On mechanical ventilation S/p intubation PEEP 5, FiO2 35% Labs reviewed Imaging studies Management plan Sedation holiday and weaning vent support ok to use precedex extubate when ready Pressors as needed to keep mean arterial pressure above 65 Tylenol for fever cultures empiric broad-spectrum antibiotics Monitor EKG and labs Per poison control IV fluids GI prophylaxis/DVT prophylaxis Critical care time 35 minutes Dietary Evaluation Review Comments: Nutrition Recommendation: 1) TF Jevity 1.2 Stefano @ 75ml/hr x 24 hr (goal). Start @ 20ml/hr, increase 10ml/hr Q4H until goal rate is reached. TF at goal volume provides 100% energy & protein needs - 2160 kcal, 100 gm protein, 1453 ml free water 2) Water flush 200ml Q6H if allowed 3) TPN if NPO>7 days 4) Monitor I/O, weight trend, lab values and skin integrity Expected Outcomes/Goals: To meet >75% estimated needs Fu 2-3 days Plan discussed with: Other (Rn) SAMUEL LOPEZ MD January 16, 2025 15:09
== END 2025-01-16 21:05 | disposition short-term general hospital (02) | DRG 817 ==
LOC: EDBD 21:44 → ER 21:48 → OVERFLOW 01-13 04:33 → CATH ICU 01-13 16:49 → ICU WEST 01-15 04:42
PROVIDERS: ADMIT Nurse Practitioner Acute Care; ATTEND Nurse Practitioner Acute Care
PROC: 0BH18EZ Insertion of Endotracheal Airway into Trachea, Via Natural or Artificial Opening Endoscopic (ICD-10-PCS; 2025-01-12)
PROC: 5A1945Z Respiratory Ventilation, 24-96 Consecutive Hours (ICD-10-PCS; principal; 2025-01-13)
DX: T43.212A Poisoning by selective serotonin and norepinephrine reuptake inhibitors, intentional self-harm, initial encounter (principal); J96.01 Acute respiratory failure with hypoxia; R57.9 Shock, unspecified; G92.8 Other toxic encephalopathy; G93.1 Anoxic brain damage, not elsewhere classified; R65.10 Systemic inflammatory response syndrome (SIRS) of non-infectious origin without acute organ dysfunction; E87.20 Acidosis, unspecified; F10.229 Alcohol dependence with intoxication, unspecified; Y92.89 Other specified places as the place of occurrence of the external cause
CPT/HCPCS: 31500; 36415; 36556; 36600; 70450; 71045; 80048; 80053; 80202; 80307; 80320; 80329; 81001; 82010; 82565; 82805; 82962; 83605; 83690; 83735; 83880; 84484; 85025; 87040; 87070; 87077; 87081; 87186; 87205; 93005; 94002; 94003; 96374; 96375; 99152; 99291; 99292; G0378; J2470; J7042

== ENCOUNTER 2025-05-18 08:15 | Emergency (ER) | payer MEDICAID ==
[~2025-05-18] VITALS: Ht 165.1 cm; Wt 81.8 kg
[2025-05-18 08:15] VITALS: BP 117/74; PULSE 66; RESP 18; TEMP 98; O2SAT 98
== END 2025-05-18 08:41 | disposition left against medical advice (07) ==
LOC: EDBD 08:15 → ER 08:18
DX: R51.9 Headache, unspecified (principal); Z53.21 Procedure and treatment not carried out due to patient leaving prior to being seen by health care provider

== ENCOUNTER 2025-05-25 15:01 | Emergency (ER) | payer MEDICAID, OTHER ==
[~2025-05-25] VITALS: Ht 167.6 cm; Wt 65.6 kg
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
[2025-05-25] MEDS ORDERED: CYCL-837 PO (16:36)
[2025-05-25] MEDS ORDERED: IBUP-1454 PO (16:36)
[2025-05-25 17:04] VITALS: BP 139/99; PULSE 62; RESP 16; TEMP 98.7; O2SAT 97
== END 2025-05-25 17:07 | disposition home or self-care (01) ==
LOC: ER 15:06
DX: S29.012A Strain of muscle and tendon of back wall of thorax, initial encounter (principal); F07.81 Postconcussional syndrome; F32.A Depression, unspecified; V89.2XXA Person injured in unspecified motor-vehicle accident, traffic, initial encounter; Y93.I9 Activity, other involving external motion; Y92.488 Other paved roadways as the place of occurrence of the external cause; Y99.8 Other external cause status
CPT/HCPCS: 70450